=== PATIENT | male | born 1980 | race Hispanic/Latino ===

== ENCOUNTER 2021-05-25 | Inpatient (IN) | payer OTHER, SELFPAY | END 2021-06-06 13:34 | disposition home or self-care (01) | DRG 208 | PROVIDERS: ADMIT Internal Medicine | PROC: 8E0ZXY6 Isolation (ICD-10-PCS; 2021-05-25) | PROC: XW033E5 Introduction of Remdesivir Anti-infective into Peripheral Vein, Percutaneous Approach, New Technology Group 5 (ICD-10-PCS; 2021-05-25) | PROC: 5A1945Z Respiratory Ventilation, 24-96 Consecutive Hours (ICD-10-PCS; principal; 2021-05-29) | PROC: 5A09357 Assistance with Respiratory Ventilation, Less than 24 Consecutive Hours, Continuous Positive Airway Pressure (ICD-10-PCS; 2021-05-29) | PROC: 0BH17EZ Insertion of Endotracheal Airway into Trachea, Via Natural or Artificial Opening (ICD-10-PCS; 2021-05-29) | DX: U07.1 COVID-19 (principal); J12.82 Pneumonia due to coronavirus disease 2019; J96.01 Acute respiratory failure with hypoxia; E87.1 Hypo-osmolality and hyponatremia; Z68.42 Body mass index [BMI] 45.0-49.9, adult; E66.01 Morbid (severe) obesity due to excess calories; R74.01 Elevation of levels of liver transaminase levels; Z90.49 Acquired absence of other specified parts of digestive tract; Z83.3 Family history of diabetes mellitus; Z82.49 Family history of ischemic heart disease and other diseases of the circulatory system | CPT/HCPCS: 36415; 36600; 71045; 71275; 80048; 80053; 80074; 82728; 82805; 83735; 84100; 84145; 84484; 85025; 85379; 85610; 85730; 86140; 93005; 94002; 94003; 94660; 94760; 96365; 96367; 96375; C9113; J0692; J0696; J1100; J1650; J1885; J2060; J2270; J2405; J2704; J2765; J2930; J3010; J3475; J3490; J7050; J7512; Q9967 ==

== ENCOUNTER 2021-07-24 08:06 | Outpatient (CLI) | payer OTHER | END 2021-07-24 08:07 | disposition home or self-care (01) | LOC: BICRAD 08:06 | PROVIDERS: ATTEND Internal Medicine Critical Care Medicine | DX: R06.00 Dyspnea, unspecified (principal) | CPT/HCPCS: 71046 ==